=== PATIENT | female | born 1945 | race Native Hawaiian/Other Pacific Islander ===

== ENCOUNTER 2017-03-20 10:23 | Inpatient (IN) | payer OTHER, BC ==
[~2017-03-20] VITALS: Ht 160 cm; Wt 91.6 kg
[2017-03-20] VITALS (7 sets, daily range): BP systolic 178–225; BP diastolic 78–100; TEMP 98–98.3; Ht 160 cm; Wt 91.6 kg
[2017-03-20 12:13] LABS: PLATELET COUNT 314 K/uL (152-353)
[2017-03-20 12:28] LABS: POTASSIUM 3.1 mmol/L (3.6-5.2)
[2017-03-20] MEDS ORDERED: ZESTRIL40 MG OR (19:20)
[2017-03-20] MEDS ORDERED: SYNTHROID137 MC1 PO (19:26)
[2017-03-21] VITALS: BP 189/73; TEMP 98.3
[2017-03-21 04:00] VITALS: BP 180/65; TEMP 96.9
[2017-03-21 08:00] VITALS: BP 123/75; TEMP 98.3
[2017-03-21 12:00] VITALS: BP 174/87; TEMP 98.2
[2017-03-21 16:00] VITALS: BP 169/75; TEMP 99.3
[2017-03-21 20:00] VITALS: BP 198/78; TEMP 98.4
[2017-03-22] VITALS: BP 189/74; TEMP 98.2
[2017-03-22 04:00] VITALS: BP 158/70; TEMP 98.4
[2017-03-22 08:00] VITALS: BP 162/76; TEMP 98.3
[2017-03-22 12:00] VITALS: BP 175/71; TEMP 98.8
[2017-03-22 16:00] VITALS: BP 164/70; TEMP 98.6
[2017-03-22 20:00] VITALS: BP 188/77; TEMP 98.8
[2017-03-23] VITALS: BP 153/64; TEMP 98.8
[2017-03-23 04:00] VITALS: BP 160/64; TEMP 98.1
[2017-03-23 08:00] VITALS: BP 163/73; TEMP 98.6
[2017-03-23 12:00] VITALS: BP 165/66; TEMP 98.9
[2017-03-23 16:00] VITALS: BP 188/73; TEMP 98.2
[2017-03-23 20:28] VITALS: BP 180/90; TEMP 98.8
[2017-03-24] VITALS: BP 125/74; TEMP 98
[2017-03-24 04:00] VITALS: BP 174/72; TEMP 97
[2017-03-24 08:00] VITALS: BP 193/76; TEMP 99
[2017-03-24 12:00] VITALS: BP 176/86; TEMP 98.5
[2017-03-24 16:00] VITALS: BP 108/84; TEMP 97.4
[2017-03-24 20:00] VITALS: BP 186/81; TEMP 97.9
[2017-03-25] VITALS: BP 109/61; TEMP 98.2
[2017-03-25 04:00] VITALS: BP 159/73; TEMP 98.3
[2017-03-25 08:00] VITALS: BP 110/77; TEMP 98.9
[2017-03-25 11:57] VITALS: BP 182/69; TEMP 98
== END 2017-03-25 15:15 | disposition home health service (06) | DRG 598 ==
LOC: ED 10:23 → MED/SURG 15:02
PROVIDERS: ADMIT Emergency Medicine
DX: C50.912 Malignant neoplasm of unspecified site of left female breast (principal); C79.51 Secondary malignant neoplasm of bone; M84.48XA Pathological fracture, other site, initial encounter for fracture; N61.0 Mastitis without abscess; G83.14 Monoplegia of lower limb affecting left nondominant side
CPT/HCPCS: 36591; 80053; 81000; 82550; 84484; 85027; 94640; 94664; 94760; 96361; 96365; 96366; 96367; 96372; 96375; 99284; J0696; J1650; J2270; J2405